=== PATIENT | female | born 1975 | race Caucasian/White ===

== ENCOUNTER 2017-04-20 12:43 | Emergency (ER) | payer MEDICAID, OTHER ==
[~2017-04-20] VITALS: Ht 170.2 cm; Wt 95.0 kg
[~2017-04-20 12:43] MED LIST: ALBU8I INH; DOXY100T PO; HYDR-3533 PO; OTC THYROID SUPP PO; PROM25SU8 PO; VIST50CA PO
[2017-04-20 12:45] VITALS: BP 142/74; PULSE 108; RESP 14; TEMP 97.6; O2SAT 97
--- NOTE | 2017-04-20 14:18 | PD ---
HPI Chief Complaint: Pain: Acute or Chronic Time Seen by Provider: 14:06 Travel History International Travel<30 days: No Contact w/Intl Traveler<30days: No Traveled to known affect area: No History of Present Illness HPI Patient is a 41-year-old female presenting to the chart for evaluation of right wrist pain. Patient states that she had a fall approximately 3 months ago that resulted in a wrist fracture, she was seen at [facility], fracture was addressed and she was splinted. She had a follow-up with an orthopedic doctor, Dr. Kelley after that and stated that he told her everything looked good and he would see her back in 6 weeks. She states that the orthopedic surgeon's office canceled her appointment due to her lack of insurance benefits and she has not been able to follow-up with anyone else. She reports that her splint was on for approximately 10 weeks total. She presents today with pain in her wrist and states that she cannot move it in certain ways. She denies any numbness, tingling, discoloration. Patient denies any new injury or trauma. She is requesting an x-ray of her wrist so someone can tell her what is wrong. PFSH Past Medical History Arthritis: No Asthma: Yes (ALBUTEROL NEEDED) Autoimmune Disease: No Anxiety: Yes Depression: No Heart Rhythm Problems: No Cancer: No Cardiovascular Problems: No High Cholesterol: No Chemotherapy: No Congestive Heart Failure: No COPD: No Cerebrovascular Accident: No Diabetes: No Diminished Hearing: No Endocrine: No Gastrointestinal Disorders: Yes GERD: Yes Genitourinary: No Headaches: Yes Hiatal Hernia: Yes (10 YRS AGO) Immune Disorder: No Musculoskeletal: No Neurologic: No Reproductive: No Migraines: Yes Radiation Therapy: No Seizures: No Sickle Cell Disease: No Sleep Apnea: No 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) Ulcer: No ?: Not LMP: LAST MONTH : 1 Para: 1 Past Surgical History Abdominal Surgery: No AICD: No Arteriovenous Shunt: No Cardiac Surgery: No Ear Surgery: No Endocrine Surgery: No Eye Surgery: No Genitourinary Surgery: No Gynecologic Surgery: No Insulin Pump: No Joint Replacement: No Oral Surgery: No Pacemaker: No Thoracic Surgery: No Other Surgery: Yes (SINUS BIOPSY) Family History Family Hypercholesterolemia: Yes Social History Alcohol Use: No Tobacco Use: No (QUIT MAR 2013) Substance Use: No Allergies-Medications (Allergen,Severity, Reaction): Coded Allergies: tramadol (Unverified Allergy, Severe, Swelling, SOB, NIGHTMARES, 11/14/16) Reported Meds & Prescriptions Reported Meds & Active Scripts Active Lortab 5 mg/325 mg (Hydrocodone/Acetaminophen 5 mg/325 mg) 1 Tab 1 Tab PO Q4H PRN Vistaril (Hydroxyzine Pamoate) 50 Mg Cap 50 Mg PO Q6H PRN Phenergan (Promethazine HCl) 25 Mg Tab 25 Mg PO Q6H PRN FOR NAUSEA/VOMITING Reported Doxycycline Hyclate 100 mg (Doxycycline Hyclate) 100 Mg Tab 100 Mg PO BID [Otc Thyroid Supp] 1 Tab PO BID Ventolin Hfa (Albuterol Sulfate) 8 Gm Aero 1 Puff INH Q4H PRN * SHAKE WELL BEFORE USE * Review of Systems Except as stated in HPI: all other systems reviewed are Neg Musculoskeletal: Positive: Myalgias, Arthralgias, Pain, No: Edema Skin: No Change in Pigmentation, No Lesions Physical Exam Narrative GENERAL: Well-developed, well-nourished, alert female. Resting comfortably in no acute distress. SKIN: Warm and dry. HEAD: Normocephalic. EYES: No scleral icterus. No injection or drainage. NECK: Supple, trachea midline. No JVD or lymphadenopathy. CARDIOVASCULAR: Regular rate and rhythm without murmurs, gallops, or rubs. RESPIRATORY: Breath sounds equal bilaterally. No accessory muscle use. GASTROINTESTINAL: Abdomen soft, non-tender, nondistended. MUSCULOSKELETAL: No cyanosis, or edema. 2+ radial pulse, brisk less than 3 second capillary refill. Decreased flexion and extension of right wrist. No obvious deformity. BACK: Nontender without obvious deformity. No CVA tenderness. Data Data Last Documented VS Vital Signs Date Time Temp Pulse Resp B/P (MAP) Pulse Ox O2 Delivery O2 Flow Rate FiO2 04/20/17 12:45 97.6 108 14 142/74 (96) 97 MDM Medical Decision Making Medical Screen Exam Complete: Yes Emergency Medical Condition: No Interpretation(s) Vital Signs Date Time Temp Pulse Resp B/P (MAP) Pulse Ox O2 Delivery O2 Flow Rate FiO2 04/20/17 12:45 97.6 108 14 142/74 (96) 97 Differential Diagnosis Arthritis versus chronic pain versus other Narrative Course Patient is a 41-year-old female presenting for evaluation of an injury to her right wrist that resulted in a fracture 3 months ago. Patient is neurovascularly intact. She is requesting an x-ray. She currently has Medicaid benefits, she was advised to follow-up with her primary doctor for outpatient imaging. A medical screening exam was performed: At the time of evaluation the presenting medical condition was determined not to be of an emergent nature. The patient was given the option of receiving additional care, but declined. Patient was given options for additional community resources from which to obtain care. The Patient Has Been advised to seek medical attention for their presenting complaint. The patient has been advised to return to the ER at any time if an emergent condition develops. Diagnosis Primary Impression: Encounter for medical screening examination Condition: Stable Brianna Pyle Apr 20, 2017 14:18
== END 2017-04-20 14:38 | disposition left against medical advice (07) ==
LOC: NEPK 12:43
DX: Z00.00 Encounter for general adult medical examination without abnormal findings (principal); J45.909 Unspecified asthma, uncomplicated; F41.9 Anxiety disorder, unspecified; K21.9 Gastro-esophageal reflux disease without esophagitis
CPT/HCPCS: 99281